=== PATIENT | female | born 1960 | race Caucasian/White ===

== ENCOUNTER 2016-06-13 17:06 | Emergency (ER) | payer BC ==
[~2016-06-13] VITALS: Ht 180.3 cm; Wt 118.0 kg
[2016-06-13 17:10] VITALS: Ht 180.3 cm; Wt 118.0 kg
[2016-06-13] MEDS ORDERED: LANS30CA12 PO (17:50)
[2016-06-13] MEDS ORDERED: ZNTT/150 PO (17:50)
[2016-06-13] MEDS ORDERED: FLVHFA220 INH (17:50)
[2016-06-13] MEDS ORDERED: LISI-461 PO (17:50)
--- NOTE | 2016-06-13 17:56 | EMERGENCY ROOM VISIT NOTE ---
History First contact with patient: 17:28 Chief Complaint: LEG PAIN,LEG INJURY Stated Complaint: RT LEG PAIN, SWELLING/REDNESS History of Present Illness The patient is a 55 year old female who presents to the Emergency Room with complaints of right leg pain, erythema since yesterday. The patient states that she noticed pain in the right medial thigh yesterday. She states she noticed redness. She states that she has not had a fever. She denies any pain in her chest or trouble breathing. She rates her discomfort a 5/10. The patient has a family history of clotting disorder. She has never had a blood clot herself. She denies any falls or injuries. Review of Systems A 10 system review of systems was completed with positives and pertinent negatives listed in the HPI. 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 (2) Hypertension Social History Smoking Status: Never Smoker Housing Status: lives with family Current/Historical Medications Scheduled Fluticasone Propionate (Flovent Hfa), 2 PUFFS INH BID Lansoprazole (Prevacid), 30 MG PO DAILY Lisinopril (Zestril), 10 MG PO DAILY Ranitidine (Zantac), 150 MG PO BID Rivaroxaban (Xarelto), 15 MG PO BID Rivaroxaban (Xarelto), 1 TAB PO DAILY Allergies Coded Allergies: No Known Allergies (Unverified , 06/13/16) Physical Exam Vital Signs Date Time Temp Pulse Resp B/P Pulse Ox O2 Delivery O2 Flow Rate FiO2 06/13/16 19:56 36.6 87 18 127/79 98 06/13/16 19:53 87 18 127/79 98 Room Air 06/13/16 17:10 36.6 110 18 176/104 98 Room Air Physical Exam VITALS: Vitals are noted on the nurse's note and reviewed by myself. Vital signs stable. GENERAL: This is a 55-year-old female, in no acute distress, nondiaphoretic, well-developed well-nourished. SKIN: There is erythema and tenderness to the right medial thigh. There is no significant warmth There is no tenting of the skin. Capillary reflex less than 2 seconds. HEAD: Normocephalic atraumatic. EARS: The external ears are normal in appearance EYES: Pupils equal round and reactive to light and accommodation. Conjunctivae without injection, sclerae without icterus. Extraocular movements intact. NOSE: Patent, turbinates without inflammation or discharge. MOUTH: Mucous membranes moist. Tonsils are not enlarged. Pharynx without erythema or exudate. Uvula midline. Airway patent. Tongue does not deviate. NECK: Supple without nuchal rigidity. No JVD. HEART: Regular rate and rhythm without murmurs gallops or rubs. LUNGS: Clear to auscultation bilaterally without wheezes, rales or rhonchi. No retractions or accessory muscle use. MUSCULOSKELETAL: No muscle atrophy, noted. There is erythema and tenderness noted to the right medial thigh. It is rather linear with a patchy got in the middle. There is no induration or significant warmth. There is no drainage. Full range of motion without joint tenderness in all extremities. Normal gait. Strength 5/5 throughout. NEURO: Patient was alert and oriented to person place and time. No focal neurological deficits. Medical Decision & Procedures ER Provider Diagnostic Interpretation: ULTRASOUND RIGHT LOWER EXTREMITY VENOUS CLINICAL HISTORY: Right leg pain and swelling. COMPARISON STUDY: No priors. TECHNIQUE: Real-time, grayscale, and color Doppler sonography of the deep veins of the right lower extremity was performed from the inguinal crease to the calf. Compression and augmentation were utilized. FINDINGS: There is no sonographic evidence of deep venous thrombosis identified in the right lower extremity. The common femoral, superficial femoral, and popliteal veins are patent and normally compressible. There is extensive nonocclusive superficial venous thrombus identified within the greater saphenous vein. This extends from the thigh to the calf. The profunda femoris vein at the junction with the common femoral vein is clear. The visualized calf veins are patent. IMPRESSION: 1. There is no sonographic evidence of deep venous thrombosis identified in the right lower extremity. 2. Occlusive superficial venous thrombus is seen within the greater saphenous vein extending to the proximal thigh to the calf. Laboratory Results 06/13/16 17:49 Red Blood Count 5.00, Mean Corpuscular Volume 83.0, Mean Corpuscular Hemoglobin 27.6, Mean Corpuscular Hemoglobin Concent 33.3, Mean Platelet Volume 10.4, Neutrophils (%) (Auto) 76.5, Lymphocytes (%) (Auto) 15.0, Monocytes (%) (Auto) 6.7, Eosinophils (%) (Auto) 1.2, Basophils (%) (Auto) 0.3, Neutrophils # (Auto) 8.65, Lymphocytes # (Auto) 1.70, Monocytes # (Auto) 0.76, Eosinophils # (Auto) 0.14, Basophils # (Auto) 0.03 06/13/16 17:49 Test 06/13/16 17:49 White Blood Count 11.31 K/uL (4.8-10.8) Red Blood Count 5.00 M/uL (4.2-5.4) Hemoglobin 13.8 g/dL (12.0-16.0) Hematocrit 41.5 % (37-47) Mean Corpuscular Volume 83.0 fL (80-100) Mean Corpuscular Hemoglobin 27.6 pg (25-34) Mean Corpuscular Hemoglobin Concent 33.3 g/dl (32-36) Platelet Count 238 K/uL (130-400) Mean Platelet Volume 10.4 fL (7.4-10.4) Neutrophils (%) (Auto) 76.5 % Lymphocytes (%) (Auto) 15.0 % Monocytes (%) (Auto) 6.7 % Eosinophils (%) (Auto) 1.2 % Basophils (%) (Auto) 0.3 % Neutrophils # (Auto) 8.65 K/uL (1.4-6.5) Lymphocytes # (Auto) 1.70 K/uL (1.2-3.4) Monocytes # (Auto) 0.76 K/uL (0.11-0.59) Eosinophils # (Auto) 0.14 K/uL (0-0.5) Basophils # (Auto) 0.03 K/uL (0-0.2) RDW Standard Deviation 42.3 fL (36.4-46.3) RDW Coefficient of Variation 14.0 % (11.5-14.5) Immature Granulocyte % (Auto) 0.3 % Immature Granulocyte # (Auto) 0.03 K/uL (0.00-0.02) Prothrombin Time 10.0 SECONDS (9.0-12.0) Prothromb Time International Ratio 0.9 (0.9-1.1) Activated Partial Thromboplast Time 25.9 SECONDS (21.0-31.0) Partial Thromboplastin Ratio 1.0 Anion Gap 9.0 mmol/L (3-11) Est Creatinine Clear Calc Drug Dose 101.0 ml/min Estimated GFR () 85.1 Estimated GFR (Non- 73.4 BUN/Creatinine Ratio 17.2 (10-20) Calcium Level 8.7 mg/dl (8.5-10.1) Total Bilirubin 0.3 mg/dl (0.2-1) Aspartate Amino Transf (AST/SGOT) 9 U/L (15-37) Alanine Aminotransferase (ALT/SGPT) 20 U/L (12-78) Alkaline Phosphatase 91 U/L (45-117) Pro-B-Type Natriuretic Peptide 65 pg/ml (0-900) Total Protein 7.6 gm/dl (6.4-8.2) Albumin 3.7 gm/dl (3.4-5.0) Globulin 3.9 gm/dl (2.5-4.0) Albumin/Globulin Ratio 0.9 (0.9-2) Medications Administered Medications (Trade) Dose Ordered Sig/Estephania Route Start Time Stop Time Status Last Admin Dose Admin Rivaroxaban (Xarelto Tab) 15 mg ONE STAT PO 06/13/16 19:04 06/13/16 19:08 DC 06/13/16 19:48 15 MG Rivaroxaban (Xarelto Tab) 15 mg ONE STAT PO 06/13/16 19:04 06/13/16 19:08 DC 06/13/16 19:48 15 MG ED Course The patient was seen and examined. Previous visits were. The patient does not have a fever or leukocytosis. She does not have any significant electrolyte abnormalities. INR is 0.9. Ultrasound was obtained as above. The patient has extensive superficial thrombophlebitis of the right leg. The patient does have extensive superficial thrombophlebitis, longer than 5 cm in length. Additionally, the patient the patient is heterozygous for prothrombin [id number]. I discussed the case with Dr. Caballero who suggests anticoagulation at a therapeutic dose. The ED pharmacist also spoke with the patient and checked with her pharmacy on coverage of Xarelto. The patient will be given 15 mg oral Xarelto in the emergency department as well as a dose for the morning. The pharmacy can have the remaining prescription in by 2 PM tomorrow. She will be given a prescription for 15 mg by mouth twice a day 3 weeks and a 30 day supply of the 20 mg daily to start after 3 weeks. She should contact her family doctor to schedule a follow-up appointment for further evaluation, management and discussion of the anticoagulation. She should return to the ER with any worsening symptoms, chest pain, trouble breathing. The case was discussed with Dr Dempsey who agrees with the assessment and treatment plan Medical Decision The differential diagnosis includes DVT, PE, superficial thrombophlebitis, cellulitis, among others Impression Primary Impression: Superficial thrombophlebitis Departure Information Dispostion Home / Self-Care Condition GOOD Prescriptions Rivaroxaban (XARELTO) 20 Mg Tab 1 TAB PO DAILY for 30 Days, #30 TAB 0 Refills Prov: Natasha Arciniega PA-C 06/13/16 Rivaroxaban (XARELTO) 15 Mg Tab 15 MG PO BID for 21 Days, #42 TAB Prov: Natasha Arciniega PA-C 06/13/16 Referrals Mynor Morrison M.D. (PCP) Patient Instructions Anticoagulants, ED Phlebitis Superficial, [facility] Additional Instructions Xarelto 15 mg every 12 hours for 3 weeks Then switch to 20 mg daily Contact your family doctor to schedule a follow-up appointment within the next week Return to the emergency Department with any chest pain, trouble breathing or generalized worsening symptoms Problem Qualifiers Primary Impression: Superficial thrombophlebitis Superficial thrombophlebitis-Involved body area: lower extremity Laterality: right Qualified Codes: I80.01 - Phlebitis and thrombophlebitis of superficial vessels of right lower extremity
[2016-06-13 18:05] LABS: BASO % 0.3 %; BASO ABS # 0.03 K/uL (0-0.2); COMPLETE YES; EOS % 1.2 %; HEMATOCRIT 41.5 % (37-47); IG% 0.3 %; MEAN CORPUSCULAR HEMOGLOBIN 27.6 pg (25-34); MEAN CORPUSCULAR HGB CONC 33.3 g/dl (32-36); MEAN PLATELET VOLUME 10.4 fL (7.4-10.4); MONO % 6.7 %; NEUT % 76.5 %; PLATELET COUNT 238 K/uL (130-400); WHITE BLOOD COUNT 11.31 K/uL (4.8-10.8)
[2016-06-13 18:25] LABS: BUN/CREATININE RATIO 17.2 (10-20); CALCIUM 8.7 mg/dl (8.5-10.1); CREATININE 0.88 mg/dl (0.60-1.20); INR 0.9 (0.9-1.1); POTASSIUM 3.9 mmol/L (3.5-5.1)
--- NOTE | 2016-06-13 18:25 | DIAGNOSTIC IMAGING REPORT ---
ULTRASOUND RIGHT LOWER EXTREMITY VENOUS CLINICAL HISTORY: Right leg pain and swelling. COMPARISON STUDY: No priors. TECHNIQUE: Real-time, grayscale, and color Doppler sonography of the deep veins of the right lower extremity was performed from the inguinal crease to the calf. Compression and augmentation were utilized. FINDINGS: There is no sonographic evidence of deep venous thrombosis identified in the right lower extremity. The common femoral, superficial femoral, and popliteal veins are patent and normally compressible. There is extensive nonocclusive superficial venous thrombus identified within the greater saphenous vein. This extends from the thigh to the calf. The profunda femoris vein at the junction with the common femoral vein is clear. The visualized calf veins are patent. IMPRESSION: 1. There is no sonographic evidence of deep venous thrombosis identified in the right lower extremity. 2. Occlusive superficial venous thrombus is seen within the greater saphenous vein extending to the proximal thigh to the calf. Electronically signed by: Edvin Brown M.D. 06/13/2016 6:23 PM Dictated Date/Time: 06/13/2016 6:22 PM
[2016-06-13 18:30] LABS: ALB/GLOB RATIO 0.9 (0.9-2)
[2016-06-13] MEDS ORDERED: RIVAROXABAN TAB 15 MG TAB PO STA ×2 (19:04)
[2016-06-13] MEDS ORDERED: RIVA1.5T PO (19:07)
[2016-06-13] MEDS ORDERED: RIVA1TAB4 PO (19:07)
[2016-06-13] MEDS ORDERED: EMPTY 8 DRAM VIAL ONE (19:46)
[2016-06-13 19:56] VITALS: BP 127/79; PULSE 87; TEMP 36.6; O2SAT 98
[2016-11-30] MEDS ORDERED: LINICRE TOP (12:14)
[2016-12-28] MEDS ORDERED: RXC5 PO (07:23)
[2016-12-28] MEDS ORDERED: XRL10 PO (07:23)
== END 2016-06-13 19:57 | disposition home or self-care (01) ==
LOC: C.EDB 17:09 → C.EDD 19:57
DX: I80.01 Phlebitis and thrombophlebitis of superficial vessels of right lower extremity (principal); I10 Essential (primary) hypertension; Z79.899 Other long term (current) drug therapy

== ENCOUNTER 2016-12-26 04:48 | Inpatient (IN) | payer BC ==
[2016-11-30 12:15] VITALS: BMI 38.0
--- NOTE | 2016-11-30 13:18 | PAT Medication Instructions ---
Service Date Nov 30, 2016. Current Home Medication List Fluticasone Propionate (Flovent Hfa), 2 PUFFS INH BID Lansoprazole (Prevacid), 30 MG PO QAM Liniments & Rubs (Vicks Babyrub), 1 DOSE TOP UD PRN for HS Lisinopril (Zestril), 10 MG PO QAM Ranitidine (Zantac), 150 MG PO BID Medication Instructions For Your Scheduled Surgery - Hold the following medications 24 hours prior to surgery: Liniments & Rubs (Vicks Babyrub), 1 DOSE TOP UD PRN for HS - Hold the following medications the morning of surgery: Lisinopril (Zestril), 10 MG PO QAM - Take the following medications the morning of surgery with a sip of water: Ranitidine (Zantac), 150 MG PO BID Lansoprazole (Prevacid), 30 MG PO QAM Fluticasone Propionate (Flovent Hfa), 2 PUFFS INH BID - Take the following medications as scheduled the night before surgery: Ranitidine (Zantac), 150 MG PO BID Fluticasone Propionate (Flovent Hfa), 2 PUFFS INH BID If you have any questions please call us at [phone] or [phone] or [phone]
[2016-11-30 13:35] LABS: BASO % 0.3 %; BASO ABS # 0.03 K/uL (0-0.2); COMPLETE YES; EOS % 1.2 %; HEMATOCRIT 39.5 % (37-47); IG% 0.2 %; LYMPH % 18.6 %; LYMPH ABS # 1.68 K/uL (1.2-3.4); MEAN CELL VOLUME 82.5 fL (80-100); MEAN CORPUSCULAR HEMOGLOBIN 27.6 pg (25-34); MEAN CORPUSCULAR HGB CONC 33.4 g/dl (32-36); MEAN PLATELET VOLUME 10.2 fL (7.4-10.4); MONO % 6.5 %; NEUT % 73.2 %; PLATELET COUNT 268 K/uL (130-400); RED BLOOD COUNT 4.79 M/uL (4.2-5.4); WHITE BLOOD COUNT 9.05 K/uL (4.8-10.8)
[2016-11-30 13:40] LABS: BUN/CREATININE RATIO 14.9 (10-20); CALCIUM 9.1 mg/dl (8.5-10.1); CREATININE 0.84 mg/dl (0.60-1.20); POTASSIUM 3.8 mmol/L (3.5-5.1)
[2016-11-30 13:44] LABS: URINE APPEARANCE CLEAR (CLEAR); URINE BILIRUBIN NEG (NEG); URINE COLOR YELLOW; URINE NITRITE NEG (NEG); URINE PH 6.5 (4.5-7.5); UROBILINOGEN NEG (NEG)
[2016-11-30 13:45] LABS: INR 0.9 (0.9-1.1)
[2016-11-30 13:51] LABS: MANUAL MICROSCOPIC REQUIRED? NO; REVIEW REQ? NO
--- NOTE | 2016-11-30 13:54 | DIAGNOSTIC IMAGING REPORT ---
TWO VIEW CHEST CLINICAL HISTORY: Preoperative examination. FINDINGS: PA and lateral chest radiographs are obtained. No prior studies are available for comparison at the time of dictation. The cardiomediastinal silhouette is unremarkable. The lungs and pleural spaces are clear. There is no pneumothorax. The skeletal structures are osteopenic. The bony thorax appears intact. IMPRESSION: No active disease in the chest. Electronically signed by: Edvin Brown M.D. 11/30/2016 1:53 PM Dictated Date/Time: 11/30/2016 1:53 PM
--- NOTE | 2016-12-25 18:27 | HISTORY & PHYSICAL EXAMINATION ---
DATE OF ADMISSION: 12/26/2016 CHIEF COMPLAINT: Primary osteoarthritis of the right hip. 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 She has been having bilateral hip pain for about 4 years. She was initially treated by Dr. Bruce, who got x-rays of her hips, which showed advanced degenerative joint disease of both hips with the right being worse than left. It got progressively worse over the past 4 years. She is having a hard time ambulating. Her pain is deep within her groin. She also has difficulty sleeping at night. After failing extensive conservative treatment, she elected to proceed with a right total hip arthroplasty. PAST MEDICAL HISTORY: Significant for superficial thrombophlebitis, hypertension and heterozygous for prothrombin [id number] mutation. MEDICATIONS: Include Flovent 2 puffs twice a day, Prevacid 30 mg daily, Vicks BabyRub as needed, Zestril 10 mg daily, and Zantac 150 mg twice a day. PAST SURGICAL HISTORY: Significant for an ovarian wedge and a carpal tunnel release. ALLERGIES: None. FAMILY HISTORY: Significant for blood clots. SOCIAL HISTORY: She is and rarely drinks. Denies any tobacco or IV drug use. She does little activity because of the right hip pain. REVIEW OF SYSTEMS: She complains of right hip pain. All other pertinent review of systems are negative. PHYSICAL EXAMINATION: GENERAL: She is awake, alert and oriented x3. She is in no apparent distress. She is very pleasant. HEENT: Pupils are equal, round and reactive to light. Extraocular motion intact. Oral mucosa is pink and moist. HEART: Regular rate per radial pulse. LUNGS: Breana symmetrically bilaterally with no audible breath sounds. ABDOMEN: Soft, nontender, and nondistended. MUSCULOSKELETAL: On physical examination of the right hip, she ambulates independently, but she does have an antalgic gait. She has very limited range of motion with about 90 degrees of flexion and very limited internal and external rotation with significant pain with forced end ranges of motion. IMAGING DATA: X-rays of the right hip do show advanced osteoarthritis with joint space narrowing, osteophyte formation and subchondral cyst sclerosis. IMPRESSION: Primary osteoarthritis of the right hip. PLAN: We will proceed with an anterior right total hip arthroplasty. Postoperatively, she will be started on Xarelto 20 mg 24 hours from the time of surgery. She has already spoken to her [facility] freelance art director about this. She will be on Xarelto for 6 weeks. She will stay in the hospital for 2 midnights for postoperative medical management.
[2016-12-26] VITALS (9 sets, daily range): BP systolic 108–181; BP diastolic 70–99; PULSE 80–100; TEMP 36.3–36.8; O2SAT 97–100; Ht 177.8 cm; Wt 121.9 kg
[~2016-12-26] VITALS: Ht 177.8 cm; Wt 121.9 kg
[~2016-12-26 04:48] MED LIST: FLVHFA220 INH; LANS30CA12 PO; LINICRE TOP; LISI-461 PO; ZNTT/150 PO
[2016-12-26] MEDS ORDERED: ROPIVACAINE 5MG/ML 30 ML 150 MG, BUPIVACAINE 0.5% MPF INJ 30 ML, EpINEphrine HCL INJ 0.... INFIL SCH ×8 (06:00)
[2016-12-26] MEDS ORDERED: CEFAZOLIN 3000MG IV PUSH 15 ML IV SCH (06:00)
[2016-12-26] MEDS ORDERED: LACTATED RINGER'S 1000ML IV SCH (06:00)
[2016-12-26] MEDS ORDERED: LACTATED RINGER'S 1000ML 1,000 ML IV SCH (06:00)
[2016-12-26] MEDS ORDERED: LACTATED RINGER'S 500 ML IV SCH (06:00)
[2016-12-26] MEDS ORDERED: ACETAMINOPHEN 500 MG TAB PO SCH (06:00)
[2016-12-26] MEDS ORDERED: BUPIVACAINE 0.5 % 5 MG/1 ML PF 10ML VIAL ONE (06:21)
--- NOTE | 2016-12-26 06:22 | History & Physical Bridge Note ---
H&P Re-Evaluation Bridge Note: I have examined the patient, reviewed the History & Physical and in the interval since the performance of the History & Physical I have noted the following changes of clinical significance: No changes noted
[2016-12-26] MEDS ORDERED: FENTANYL CITRATE INJ 50 MCG/1 ML 2 ML VIAL ONE ×3 (06:46→12:34)
[2016-12-26] MEDS ORDERED: MIDAZOLAM HCL 1 MG/ML 2ML VIAL ONE ×4 (06:46→11:24)
[2016-12-26] MEDS ORDERED: ORTHO JOINT ANESTHETIC ONE (06:53)
[2016-12-26] MEDS ORDERED: BACITRACIN 50000 UNIT VIAL ONE ×2 (06:54→12:03)
[2016-12-26] MEDS ORDERED: PROPOFOL IV EMULSION 10 MG/ML 20 ML VIAL IV ONE ×3 (06:55→11:24)
[2016-12-26] MEDS ORDERED: ATROPINE SULFATE 0.1 MG/ML 5ML SYR IV PRN ×2 (07:30→12:15)
[2016-12-26] MEDS ORDERED: FENTANYL CITRATE INJ 50 MCG/1 ML 2 ML VIAL IV PRN ×2 (07:30→12:15)
[2016-12-26] MEDS ORDERED: EpHEDrine SULFATE INJ 50 MG/ML AMP IV PRN ×2 (07:30→12:15)
[2016-12-26] MEDS ORDERED: ONDANSETRON INJ 2 MG/ML 2 ML VIAL IV PRN ×3 (07:30→12:15)
[2016-12-26] MEDS ORDERED: LIDOCAINE HCL 2% 2 ML VIAL (20MG/ML) ONE ×2 (08:19→11:24)
[2016-12-26] MEDS ORDERED: GLYCOPYRROLATE INJ 0.2 MG/ML VIAL ONE (08:20)
[2016-12-26] MEDS ORDERED: PHENYLEPHRINE 100MCG/ML 5ML SYR ONE (08:20)
[2016-12-26] MEDS ORDERED: EpHEDrine SULFATE 50MG/5ML SYR ONE (08:25)
--- NOTE | 2016-12-26 09:15 | DIAGNOSTIC IMAGING REPORT ---
R HIP UNILATERAL 1 VIEW CLINICAL HISTORY: RT ANTERIOR HIP COMPARISON: None. DISCUSSION: Anatomic alignment status post total right hip replacement. Expected postoperative soft tissue change IMPRESSION: Anatomic alignment status post total right hip replacement The above report was generated using voice recognition software. It may contain grammatical, syntax or spelling errors. Electronically signed by: Keo Briggs M.D. 12/26/2016 9:14 AM Dictated Date/Time: 12/26/2016 9:13 AM
--- NOTE | 2016-12-26 09:16 | [facility] Post Operative Brief Note ---
Immediate Operative Summary Operative Date Dec 26, 2016. Pre-Operative Diagnosis Primary osteoarthritis right hip Post-Operative Diagnosis Primary osteoarthritis right hip Procedure(s) Performed Right Anterior Total Hip Arthroplasty Surgeon [facility] Unit Clerk Surgeon(s) Sanket Bowen PA-C Estimated Blood Loss 250cc Findings as above Specimens A. Right femoral head Complication(s) None Disposition Recovery Room / PACU
[2016-12-26] MEDS ORDERED: MAGNESIUM HYDROXIDE SUSP 30 ML UDC PO PRN (09:30)
[2016-12-26] MEDS ORDERED: OXYCODONE HCL IR 5 MG TAB (IMMEDIATE RELEASE) PO PRN (09:30)
[2016-12-26] MEDS ORDERED: METOCLOPRAMIDE HCL INJ 5 MG/ML 2 ML VIAL IV PRN (09:30)
[2016-12-26] MEDS ORDERED: MoRPHine SULFATE 2 MG/ML CARP IV PRN (09:30)
[2016-12-26] MEDS ORDERED: SILVER SULFADIAZINE 1% CR 50 GM JAR EXT PRN (09:30)
[2016-12-26] MEDS ORDERED: SOD PHOSPHATE/SOD BIPHOSPHATE ENEMA 132 ML BTL PR PRN (09:30)
[2016-12-26] MEDS ORDERED: BISACODYL 10 MG SUPP PR PRN (09:30)
--- NOTE | 2016-12-26 10:15 | DIAGNOSTIC IMAGING REPORT ---
SINGLE VIEW PELVIS; 2 VIEWS RIGHT HIP CLINICAL HISTORY: Postoperative examination. FINDINGS: An AP portable view of the hips and pelvis with AP and crosstable lateral portable view of the right hip are obtained. A bipolar right hip arthroplasty has been placed. The femoral component does not appear to be well seated within the acetabular cup, and appears to be mildly subluxed dorsally and laterally. A single cortical lag screw transfixes the acetabular cup. No acute fracture is identified. There are expected postoperative changes overlying the right hip including skin clips, subcutaneous gas, a surgical drain, and soft tissue swelling. Advanced arthritic change is identified in the left hip. IMPRESSION: 1. There are expected postoperative findings status post right hip arthroplasty. The femoral components does not appear to be well seated within the acetabular cup. 2. No fracture is seen. Electronically signed by: Edvin Brown M.D. 12/26/2016 10:14 AM Dictated Date/Time: 12/26/2016 10:11 AM
--- NOTE | 2016-12-26 10:49 | Anesthesiology Progress Note ---
Anesthesia Post Op Note Date & Time Dec 26, 2016 at 10:45 Vital Signs Pain Intensity: 0 Vital Signs Past 12 Hours Date Time Temp Pulse Resp B/P (MAP) Pulse Ox O2 Delivery O2 Flow Rate FiO2 12/26/16 10:30 36.1 92 18 147/86 100 Nasal Cannula 2 12/26/16 10:15 73 19 136/99 100 Nasal Cannula 2 12/26/16 10:05 80 19 133/93 100 Nasal Cannula 2 12/26/16 09:55 82 15 125/86 100 Nasal Cannula 2 12/26/16 09:45 81 15 134/82 100 Oxymask 10 12/26/16 09:35 92 15 129/78 100 Oxymask 10 12/26/16 09:27 36.4 101 14 112/76 99 Oxymask 10 12/26/16 05:40 36.8 84 20 147/98 98 Room Air Notes Mental Status: alert / awake / arousable, participated in evaluation Pt Amnestic to Procedure: Yes Nausea / Vomiting: adequately controlled Pain: adequately controlled Airway Patency, RR, SpO2: stable & adequate BP & HR: stable & adequate Hydration State: stable & adequate Neuraxial Anesthesia: was administered, sensory block is resolving Anesthetic Complications: no major complications apparent Pt has no anesthetic complications but pt will need to return to operating room 2/2 unstable hip on post operative X ray.
[2016-12-26] MEDS ORDERED: ONDANSETRON INJ 2 MG/ML 2 ML VIAL ONE (11:24)
[2016-12-26] MEDS ORDERED: DEXAMETHASONE SOD INJ 4 MG/ML VIAL ONE (11:24)
--- NOTE | 2016-12-26 11:48 | History & Physical Bridge Note ---
H&P Re-Evaluation Bridge Note: Post operative x-rays showed a subluxation of the femoral head. After discussions with the patient and her family, she will be taken back to the OR for a femoral head exchange.
--- NOTE | 2016-12-26 12:09 | PROGRESS NOTE ---
DATE: 12/26/2016 Postoperative radiographs done in the postanesthesia care unit showed a subluxation of the femoral head. The femoral head was not fully dislocated, it was just subluxated laterally. Her leg lengths looked equal. I was able to get full range of motion of her hip and her hip seemed to move just fine. When I did an x-ray in more abduction, the hip was reduced, but when I brought the leg out to full extension, it was subluxated laterally. This is confusing because she had an anatomic reduction in the OR, confirmed with fluoroscopy following the surgery. I shot several x-rays to see if the hip could easily be reduced, but it could not. It was sitting laterally. I am not sure if there was some soft tissue interposition or if there was something with closure of the capsule. I discussed it with the patient and her family. I want to take her back to the operating room and possibly do a femoral head exchange and ensure there is no soft tissue interposition. Consent was signed and I will talk to the family immediately afterwards.
--- NOTE | 2016-12-26 12:45 | OPERATIVE REPORT ---
DATE OF OPERATION: 12/26/2016 PREOPERATIVE DIAGNOSIS: Primary osteoarthritis of the right hip. POSTOPERATIVE DIAGNOSIS: Same. PROCEDURE: Right total hip arthroplasty. SURGEON: Dr. Montez Thomas. RIPRAP MAN: Shady Bowen PA-C, whose assistance was necessary for positioning of the leg and helping with instrumentation. ANESTHESIA: Spinal. COMPLICATIONS: None. CONDITION: Stable to PACU. IMPLANTS USED: I used a Biomet Taperloc total hip arthroplasty system with a size 52 G7 cup with a single 30 mm screw, a neutral E1 poly liner, a size 17 standard offset Taperloc stem and a 36+6 ceramic head. INDICATIONS: Francheska is a pleasant 56-year-old female who presented to my office with chronic bilateral hip pain. X-rays and clinical examination were diagnostic for primary osteoarthritis of both hips. After failing conservative treatment, she elected to undergo a right total hip arthroplasty. OPERATION AND FINDINGS: On 12/26/2016, she arrived at [facility] for the above procedure. She was seen in the preoperative holding area and the operative extremity was identified and signed. She was given a preoperative antibiotic and a spinal anesthetic. She was taken back to the operating room, laid on the table in supine position and put under basic sedation. The right leg was then brought out to a Purist leg positioner. The right hip was then prepped and draped in sterile fashion. Time-out was done and the patient and operative extremity was properly identified. An anterior approach was used. Dissection was taken down through the fascia and the tensor muscle was retracted laterally and the rectus was retracted medially. The circumflex vessels were ligated. The capsule was then incised and tagged for later repair. The femoral neck was then resected and the head was removed. The acetabulum was exposed. Time was spent doing a complete circumferential labral release. Sequential reaming of the acetabulum up to a size 51 reamer was done. Reaming was done under fluoroscopy to ensure appropriate version. A final size 52 acetabular cup was then impacted into place. I was happy with the version. A neutral E1 poly liner was then snapped into place. Fluoroscopic images showed anatomic alignment of the cup. Attention was then turned to the femur. The proximal femur was exposed. Sequential broaching up to a size 17 broach was done. A standard head and neck assembly was applied and the hip was reduced. I felt it looked like that the hip was a little bit short. I tried a +6 trial head and it seemed to bring out the leg lengths equally. The hip was then dislocated. The broach was removed. The final size 17 implant was then impacted into place. A ceramic 36+6 head was then impacted into place. Her hip was reduced. Final fluoroscopic images showed anatomic reduction of the hip and anatomic alignment. The wound was then irrigated and surrounding soft tissues were injected with 100 mL orthopedic pain control cocktail. The entire wound was irrigated with 3 liters of normal saline solution with bacitracin. The capsule was then closed with #1 Vicryl and a drain was placed. The fascia was closed with PDS suture. Skin was closed with 2-0 Vicryl, 3-0 V-Loc and nicola. She was placed in a soft dressing and taken to the postanesthesia care unit in stable condition. She tolerated the procedure well. I attest to the content of the Intraoperative Record and any orders documented therein. Any exception s are noted below.
--- NOTE | 2016-12-26 14:18 | Anesthesiology Progress Note ---
Anesthesia Post Op Note Date & Time Dec 26, 2016 at 14:18 Vital Signs Pain Intensity: 0 Vital Signs Past 12 Hours Date Time Temp Pulse Resp B/P (MAP) Pulse Ox O2 Delivery O2 Flow Rate FiO2 12/26/16 14:10 84 12 145/87 100 Nasal Cannula 2 12/26/16 14:07 144/88 12/26/16 14:05 36.0 92 17 159/100 100 Nasal Cannula 2 12/26/16 13:55 82 14 148/93 100 Nasal Cannula 2 12/26/16 13:45 84 18 148/82 100 Oxymask 10 12/26/16 13:37 36.2 96 12 140/82 100 Oxymask 10 12/26/16 12:15 70 18 142/81 100 Nasal Cannula 2 12/26/16 12:00 80 23 149/84 100 Nasal Cannula 2 12/26/16 11:45 84 16 148/90 100 Nasal Cannula 2 12/26/16 11:30 66 16 137/90 100 Nasal Cannula 2 12/26/16 11:15 77 16 144/81 100 Nasal Cannula 2 12/26/16 11:00 74 16 141/91 100 Nasal Cannula 2 12/26/16 10:45 79 16 143/85 100 Nasal Cannula 2 12/26/16 10:30 36.1 92 18 147/86 100 Nasal Cannula 2 12/26/16 10:15 73 19 136/99 100 Nasal Cannula 2 12/26/16 10:05 80 19 133/93 100 Nasal Cannula 2 12/26/16 09:55 82 15 125/86 100 Nasal Cannula 2 12/26/16 09:45 81 15 134/82 100 Oxymask 10 12/26/16 09:35 92 15 129/78 100 Oxymask 10 12/26/16 09:27 36.4 101 14 112/76 99 Oxymask 10 12/26/16 05:40 36.8 84 20 147/98 98 Room Air Notes Mental Status: alert / awake / arousable, participated in evaluation Pt Amnestic to Procedure: Yes Nausea / Vomiting: adequately controlled Pain: adequately controlled Airway Patency, RR, SpO2: stable & adequate BP & HR: stable & adequate Hydration State: stable & adequate Anesthetic Complications: no major complications apparent
--- NOTE | 2016-12-26 14:20 | DIAGNOSTIC IMAGING REPORT ---
R PELVIS/UNILATERAL HIP 1 VIEW CLINICAL HISTORY: Postoperative evaluation. COMPARISON: Pelvis and bilateral hip radiographs November 21, 2016. FINDINGS: Alignment of the total right hip arthroplasty is anatomic. There is an acetabular screw. No fracture or unexpected radiopaque foreign bodies are identified. Skin nicola are present. Severe left hip osteoarthritis is noted. IMPRESSION: Expected findings following total right hip arthroplasty. Electronically signed by: Clinton Kelly M.D. 12/26/2016 2:19 PM Dictated Date/Time: 12/26/2016 2:16 PM
[2016-12-26] MEDS: SODIUM CHLORIDE 0.9% 1000ML 1,000 ML IV SCH ×2 (15:45→16:23)
[2016-12-26] MEDS: KETOROLAC TROMETHAMINE 30 MG/ML VIAL IV. SCH ×2 (15:46→20:55)
[2016-12-26] MEDS: CEFAZOLIN IV 2,000 MG in SYRINGE 0 ML IV SCH (15:46)
--- NOTE | 2016-12-26 15:46 | OPERATIVE REPORT ---
DATE OF OPERATION: 12/26/2016 PREOPERATIVE DIAGNOSIS: Subluxation of the right hip. POSTOPERATIVE DIAGNOSIS: Same. PROCEDURE: Femoral head exchange of the right hip. SURGEON: Dr. Montez Thomas. FAMILY MANAGER: Sanket Bowen PA-C, whose assistance was necessary for retraction. ANESTHESIA: General. COMPLICATIONS: None. CONDITION: Stable to PACU. IMPLANTS USED: I used a Biomet 36-mm metal head with a +12 neck. INDICATIONS: Francheska is a pleasant 56-year-old female who just underwent a right total hip arthroplasty several hours ago. Initial radiographs under fluoroscopy in the OR showed reduced hip. She was then taken to the postanesthesia care unit and postoperative plain films showed lateral subluxation of the hip. I was concerned that there was not enough tension or length of the prosthesis. She had a +6 head in there and given the abnormality of her anatomy with her being extremely long and valgus, I thought a longer implant and reduction would be necessary. I discussed everything with her and her family and we took her back to the operating room for femoral head exchange. The right hip was prepped and draped in sterile fashion and the right leg was brought out through Purist leg positioner. Time-out was done and the patient and operative extremity was properly identified. The previous incision was once again opened back up. Dissection was taken down directly to the capsule. The capsule was released. Initial fluoroscopic x-ray showed a reduced hip. The hip was dislocated. I trialed a +9 head and a +12 head. The +12 seemed to give the best stability. The final 36/+12 metal head was then impacted into place. The hip was reduced. Final fluoroscopic images showed complete reduction of the hip. The wound was then irrigated with 3 liters of normal saline solution with bacitracin. The capsule was then closed with #1 Vicryl. The fascia was closed with #1 PDS suture. Skin was closed with 2-0 Vicryl, 3-0 V-Loc suture and nicola. She was then placed in a soft dressing, extubated, transferred to [facility] and taken to the postanesthesia care unit in stable condition. She tolerated the procedure well. Postoperative flat plate radiographs done in the PACU showed anatomic total hip arthroplasty without subluxation. I attest to the content of the Intraoperative Record and any orders documented therein. Any exception s are noted below.
[2016-12-26] MEDS: ACETAMINOPHEN IV 1,000 MG in EMPTY BAG 0 ML IV SCH (15:47)
[2016-12-26] MEDS: FLUTICASONE HFA 220 MCG INHALER INH SCH (20:52)
[2016-12-26] MEDS: DOCUSATE SODIUM 100 MG CAP PO SCH (20:54)
[2016-12-26] MEDS: RANITIDINE HCL 150 MG TAB PO SCH (20:54)
[2016-12-26] MEDS: SENNA 8.6 MG TAB PO SCH (20:54)
[2016-12-27] MEDS: ACETAMINOPHEN IV 1,000 MG in EMPTY BAG 0 ML IV SCH ×2 (00:22→07:32)
[2016-12-27] MEDS: CEFAZOLIN IV 2,000 MG in SYRINGE 0 ML IV SCH (00:23)
[2016-12-27] MEDS: SODIUM CHLORIDE 0.9% 1000ML 1,000 ML IV SCH (01:52)
[2016-12-27 03:25] VITALS: BP 115/69; PULSE 89; TEMP 36.9; O2SAT 99
[2016-12-27] MEDS: KETOROLAC TROMETHAMINE 30 MG/ML VIAL IV. SCH ×4 (03:57→22:00)
[2016-12-27 06:19] LABS: COMPLETE YES; HEMATOCRIT 29.6 % (37-47); IG% 0.2 %; LYMPH % 10.5 %; LYMPH ABS # 0.88 K/uL (1.2-3.4); MEAN CELL VOLUME 82.9 fL (80-100); MEAN CORPUSCULAR HEMOGLOBIN 27.7 pg (25-34); MEAN CORPUSCULAR HGB CONC 33.4 g/dl (32-36); MEAN PLATELET VOLUME 10.1 fL (7.4-10.4); MONO % 10.3 %; PLATELET COUNT 200 K/uL (130-400); RED BLOOD COUNT 3.57 M/uL (4.2-5.4); WHITE BLOOD COUNT 8.38 K/uL (4.8-10.8)
[2016-12-27 06:45] LABS: BUN/CREATININE RATIO 18.8 (10-20); CALCIUM 8.3 mg/dl (8.5-10.1); CREATININE 0.75 mg/dl (0.60-1.20); POTASSIUM 4.2 mmol/L (3.5-5.1)
--- NOTE | 2016-12-27 06:53 | Discharge Instructions ---
Discharge Instructions Date of Service Dec 27, 2016. Admission Reason for Admission: Osteoarthritis Hip Discharge Discharge Diagnosis / Problem: Right Total Hip Arthroplasty Discharge Goals Goal(s): Decrease discomfort, Improve function Activity Recommendations Activity Limitations: as noted below . Instructions / Follow-Up Instructions / Follow-Up Activity and Therapy Recommendations: * If you are using [facility] then Physical Therapy will be provided until they feel you are ready to start Outpatient Physical Therapy. If you are not using a Home Health agency then Outpatient Physical Therapy should start about 3-5 days from your day of surgery. Therapy will last about 3-6 weeks * You were shown a series of exercises in the hospital. Do these exercises three times each day including the exercises you were shown in physical therapy. * Get up and walk several times each day.~ For the first four weeks, try not to stand or walk for more than one hour at a time. If you do stand or walk for more than one hour, you will not hurt anything, but your leg will likely swell.~ ~ * As you feel comfortable, you may change from the walker or crutches to a cane and~then to independent walking. Medications: * Narcotic You will likely be sent home from the hospital with a prescription for the narcotic pain medication that worked best throughout your stay. * Aspirin Most patients will be required to take Aspirin 325mg twice a day for 6 weeks after surgery. This is obtained [id number] and a prescription is not necessary. * Other medications may be prescribed for specific circumstances. If you have any questions, please call the office at . * Resume previous home medications unless otherwise instructed TEDs/Elastic Stockings: The white elastic stockings help limit swelling and prevent blood clots from forming in your legs. The more you wear them, the more they work. Wear them for six weeks. Showering: You may shower 5 days from the day of surgery. Let the soapy shower water run over the nicola. Do not scrub or soak the incision. Things To Watch For: * Drainage from the incision site that occurs more than one week after your surgery. * Increased redness at the incision site. * Fever above 102 degrees Fahrenheit. * Unusual chest pain or shortness of breath. * Call [facility] at with any of the above problems Follow-Up Visit: Follow-up with Dr. Thomas 2-3 weeks after your day of surgery. An appointment was probably scheduled when you signed-up for surgery in the office. If you have any questions call Office Instructions: More detailed instructions as well as Frequently Asked Questions were provided in a folder by our office when you signed-up for surgery. Please review these instructions when you get home. If you have any further questions or concerns, please feel free to call the office at [phone] Current Hospital Diet Patient's current hospital diet: Regular Diet Discharge Diet Recommended Diet: Regular Diet Procedures Procedures Performed: Right Femoral Head Exchange Pending Studies Studies pending at discharge: no Medical Emergencies . Who to Call and When: Medical Emergencies: If at any time you feel your situation is an emergency, please call [phone] immediately. . Non-Emergent Contact Non-Emergency issues call your: Surgeon Call Non-Emergent contact if: wound has increased drainage, wound has increased redness . "Provider Documentation" section prepared by Montez Thomas. . VTE Core Measure Inpt VTE Proph given/why not?: Other Anticoagulation (Xerelto 20 mg daily for 4 weeks)
[2016-12-27 06:57] VITALS: BP 131/76; PULSE 83; TEMP 36.7; O2SAT 100
--- NOTE | 2016-12-27 07:17 | PROGRESS NOTE ---
DATE: 12/27/2016 CHIEF COMPLAINT: Status post right total hip arthroplasty postop day #1. PROGRESS: Francheska was seen and examined at bedside today. Overall, she is doing very well. She said she has some soreness in the hip, but not too bad. She was up and ambulating around the nurses' station last night and she has been up several times to go to the bathroom. She says her hip feels good. She has no complaints. PHYSICAL EXAMINATION: RIGHT HIP: The dressing is clean and dry; there is no drain. Her leg lengths are equal. She has active dorsiflexion and plantarflexion of her right ankle. Sensation is intact at her quad. LABS: She has an H&H of 9.9 and 29.6. Her glucose is 114. Her vital signs are all stable on room air. She is voiding on her own. X-rays postoperatively of the right hip show the prosthesis to be in anatomic alignment without any evidence of fracture, dislocation or loosening. IMPRESSION: Status post right total hip arthroplasty postop day #1. PLAN: At this point she is doing well. She is up and ambulating well around the nurses' station. She has very little pain in the hip. She will get some more therapy throughout the day today. Tomorrow the nursing staff can change the dressing and will likely discharge her to home with [facility].
[2016-12-27] MEDS: RIVAROXABAN 10 MG TAB PO SCH (08:31)
[2016-12-27] MEDS: RANITIDINE HCL 150 MG TAB PO SCH ×2 (08:31→20:58)
[2016-12-27] MEDS: LISINOPRIL 10 MG TAB PO SCH (08:32)
[2016-12-27] MEDS: MULTIVITAMIN TAB PO SCH (08:32)
[2016-12-27] MEDS: DOCUSATE SODIUM 100 MG CAP PO SCH ×2 (08:33→20:58)
[2016-12-27] MEDS: FLUTICASONE HFA 220 MCG INHALER INH SCH ×2 (08:34→20:58)
[2016-12-27] MEDS: PANTOprazole SOD 40 MG TAB PO SCH (08:35)
[2016-12-27] MEDS ORDERED: RIVAROXABAN 20 MG TAB PO SCH (09:00)
--- NOTE | 2016-12-27 09:18 | Anesthesiology Progress Note ---
Anesthesia Post Op Note Date & Time Dec 27, 2016 at 09:18 Vital Signs Pain Intensity: 0.0 Vital Signs Past 12 Hours Date Time Temp Pulse Resp B/P (MAP) Pulse Ox O2 Delivery O2 Flow Rate FiO2 12/27/16 07:30 Room Air 12/27/16 06:57 36.7 83 18 131/76 (94) 100 Room Air 12/27/16 03:25 36.9 89 16 115/69 (84) 99 Room Air 12/27/16 00:15 Room Air 12/26/16 23:05 36.4 81 16 108/70 (83) 99 Room Air Notes Mental Status: alert / awake / arousable, participated in evaluation Pt Amnestic to Procedure: Yes Nausea / Vomiting: adequately controlled Pain: adequately controlled Airway Patency, RR, SpO2: stable & adequate BP & HR: stable & adequate Hydration State: stable & adequate Neuraxial Anesthesia: sensory block resolved Anesthetic Complications: no major complications apparent
[2016-12-27 12:53] VITALS: BP 127/68; PULSE 98; TEMP 37.1; O2SAT 99
[2016-12-27] MEDS: ACETAMINOPHEN 500 MG TAB PO SCH ×2 (13:35→22:18)
[2016-12-27 15:00] VITALS: BP 121/70; PULSE 93; TEMP 37.2; O2SAT 100
[2016-12-27] MEDS: SENNA 8.6 MG TAB PO SCH (20:58)
[2016-12-27 22:50] VITALS: BP 131/78; PULSE 86; TEMP 36.8; O2SAT 100
[2016-12-28] MEDS: KETOROLAC TROMETHAMINE 30 MG/ML VIAL IV. SCH (03:46)
[2016-12-28] MEDS: ACETAMINOPHEN 500 MG TAB PO SCH (05:44)
[2016-12-28 07:13] VITALS: BP 129/76; PULSE 74; TEMP 36.7; O2SAT 99
[2016-12-28] MEDS ORDERED: RXC5 PO (07:23)
[2016-12-28] MEDS ORDERED: XRL10 PO (07:23)
--- NOTE | 2016-12-28 07:41 | PROGRESS NOTE ---
DATE: 12/28/2016 CHIEF COMPLAINT: Status post right total hip arthroplasty postop day #2. PROGRESS: Francheska was seen and examined at bedside today. Overall, she is doing extremely well. She has been up and ambulating well with physical therapy. She has already done stairs. Her pain is controlled. She has no complaints. PHYSICAL EXAMINATION: RIGHT HIP: The dressing has been changed. Her leg lengths are equal. She has active dorsiflexion and plantarflexion of her right ankle. Sensation is intact. IMPRESSION: Status post right total hip arthroplasty postop day #2. PLAN: At this point, she is doing well. She is working well with physical therapy. Her pain is controlled. We will discharge her to home later today with [facility].
--- NOTE | 2016-12-28 08:07 | DISCHARGE SUMMARY ---
DISCHARGE DIAGNOSIS: Primary osteoarthritis of the right hip. PROCEDURE: Right total hip arthroplasty on 12/26/[address] Montez Thomas. DISCHARGE INSTRUCTIONS: 1. Xarelto 10 mg daily for 4 weeks. 2. Oxycodone 5-10 mg every 4 hours as needed for pain. 3. Flovent 2 puffs twice a day. 4. Prevacid 30 mg daily. 5. Zestril 10 mg daily. 6. Zantac 150 mg twice a day. 7. Weightbear as tolerated. 8. Follow up with Dr. Thomas in 2 weeks. 9. Call the office of Dr. Thomas with any questions or concerns. HOSPITAL COURSE: Francheska is a pleasant 56-year-old female who presented to my office with complaints of chronic right hip and groin pain. X-rays and clinical examination were diagnostic for primary osteoarthritis of the right hip. After failing conservative treatment, she elected to undergo a right total hip arthroplasty. On 12/26/2016 she underwent a right total hip arthroplasty. She had a spinal anesthetic at the time. Fluoroscopy during the procedure showed a reduced hip. She was taken to the postanesthesia care unit where flat plate radiographs showed subluxation of the hip joint. I was concerned that given her anatomy the neck needed to be lengthened and I needed to tighten up her hip. It took her back to the operating room and under general anesthetic, she underwent a femoral head exchange. Postoperative x-rays showed anatomic total hip arthroplasty. After that, her hospital course was uneventful. She was started on Xarelto 10 mg daily for DVT prophylaxis because of her clotting disorder. She was discharged to general orthopedic floor. On postop day #1, her H&H was stable at 9.9 and 29.6. She was up and ambulating well with physical therapy. Her pain was well controlled. On postop day #2, the nursing staff changed the dressing and she continued to work well with physical therapy and was going up and down stairs. She was subsequently discharged to home on postop day #2 with the above instructions.
[2016-12-28] MEDS: DOCUSATE SODIUM 100 MG CAP PO SCH (09:13)
[2016-12-28] MEDS: MULTIVITAMIN TAB PO SCH (09:13)
[2016-12-28] MEDS: PANTOprazole SOD 40 MG TAB PO SCH (09:13)
[2016-12-28] MEDS: RANITIDINE HCL 150 MG TAB PO SCH (09:14)
[2016-12-28] MEDS: FLUTICASONE HFA 220 MCG INHALER INH SCH (09:14)
[2016-12-28] MEDS: RIVAROXABAN 10 MG TAB PO SCH (09:14)
[2016-12-28] MEDS: LISINOPRIL 10 MG TAB PO SCH (09:15)
[2016-12-28 09:31] VITALS: BP 129/76; PULSE 74; TEMP 36.7; O2SAT 99
--- NOTE | 2016-12-28 13:58 | DIAGNOSTIC IMAGING REPORT ---
R HIP UNILATERAL 1 VIEW CLINICAL HISTORY: HIP REPLACEMENT READJUSTMENT COMPARISON STUDY: Right hip and pelvis radiographs December 26, 2016. Fluoroscopy time: 82 seconds. FINDINGS: Single intraoperative fluoroscopic AP image demonstrates anatomic alignment right hip arthroplasty. Distal aspect of the femoral component was not imaged on this exam. No fracture or unexpected radiopaque body is identified. IMPRESSION: Expected findings during total right hip arthroplasty. Electronically signed by: Clinton Kelly M.D. 12/28/2016 1:56 PM Dictated Date/Time: 12/28/2016 1:54 PM
== END 2016-12-28 11:44 | disposition home health service (06) | DRG 467 ==
LOC: C.ACU 04:48 → C.3E 09:36 → ENRESERV 09:48 → CANRESERV 09:48 → CANBEDREQ 10:20 → ENRESERV 13:58
PROVIDERS: ADMIT Orthopaedic Surgery; ATTEND Orthopaedic Surgery
PROC: 0SRR01Z Replacement of Right Hip Joint, Femoral Surface with Metal Synthetic Substitute, Open Approach (ICD-10-PCS; 2016-12-26)
PROC: 0SP90JZ Removal of Synthetic Substitute from Right Hip Joint, Open Approach (ICD-10-PCS; 2016-12-26)
PROC: 0SR904Z Replacement of Right Hip Joint with Ceramic on Polyethylene Synthetic Substitute, Open Approach (ICD-10-PCS; principal; 2016-12-26 07:15)
DX: M16.11 Unilateral primary osteoarthritis, right hip (principal); T84.020A Dislocation of internal right hip prosthesis, initial encounter; D68.52 Prothrombin gene mutation; I10 Essential (primary) hypertension; Y92.239 Unspecified place in hospital as the place of occurrence of the external cause

== ENCOUNTER 2022-02-03 06:31 | Observation (INO) ==
--- NOTE | 2022-01-04 15:50 | PAT Medication Instructions ---
Medication Instructions Date of Service January 04, 2022 Home Medications albuterol sulfate 90 mcg/actuation aerosol inhaler 1 inh inhalation QID PRN cholecalciferol (vitamin D3) 25 mcg (1,000 unit) tablet (Vitamin D3) 25 mcg PO HS cyanocobalamin (vitamin B-12) 1,000 mcg tablet (Vitamin B-12) 1,000 mcg PO HS fluticasone propionate 110 mcg/actuation HFA aerosol inhaler (Flovent HFA) 2 puff inhalation BID lisinopril 10 mg tablet 10 mg PO QAM omeprazole 20 mg capsule,delayed release 20 mg PO QAM sertraline 25 mg tablet 25 mg PO HS DO NOT take the morning of surgery lisinopril 10 mg tablet 10 mg PO QAM Take morning of surgery With a small sip of water, OTHERWISE NOTHING TO EAT OR DRINK AFTER MIDNIGHT: albuterol sulfate 90 mcg/actuation aerosol inhaler 1 inh inhalation QID PRN(use if needed; please bring with you to hospital day of surgery if possible) fluticasone propionate 110 mcg/actuation HFA aerosol inhaler (Flovent HFA) 2 puff inhalation BID omeprazole 20 mg capsule,delayed release 20 mg PO QAM Take evening before surgery albuterol sulfate 90 mcg/actuation aerosol inhaler 1 inh inhalation QID PRN(if needed) cholecalciferol (vitamin D3) 25 mcg (1,000 unit) tablet (Vitamin D3) 25 mcg PO HS cyanocobalamin (vitamin B-12) 1,000 mcg tablet (Vitamin B-12) 1,000 mcg PO HS fluticasone propionate 110 mcg/actuation HFA aerosol inhaler (Flovent HFA) 2 puff inhalation BID sertraline 25 mg tablet 25 mg PO HS Other Notes If you have any questions please call us at [phone] or [phone] or [phone] or [phone]
--- NOTE | 2022-01-10 10:05 | Anesthesiology Consultation ---
Date of Service January 10, 2022 Assessment & Plan (1) Encounter for pre-operative examination: Outpatient joint assessment: Patient is currently scheduled for inpatient pathway. Case discussed with Dr Rivera who advised if re-evaluated pending system levels during current pandemic/surgeon requests outpatient pathway, patient is acceptable candidate for outpatient joint program from anesthesia standpoint pending surgeon's office assessment of pt motivation/support/completion of same day joint program preop requirements. Chart Review Chart Review: Acceptable Risk for Surgery and Patient seen in Pre Admission Testing Teaching & Discussion Pre-Anesthesia Teaching/Discussion Notes: Instructed NPO after midnight before surgery, except medications with 15 cc of water. Medication instructions provided according to the PAT guidelines. History Surgery Operation Date: 02/03/22 08:10 Proposed Procedures p Left Anterior Total Hip Arthroplasty - Montez Thomas DO Height/Weight Height: 5 ft 11 in Weight: 120.202 kg Allergies Allergy/AdvReac Type Severity Reaction Status Date / Time No Known Allergies Allergy Unverified 01/04/22 10:49 Medications Home Medications Medication Instructions Recorded Confirmed Last Taken albuterol sulfate 90 mcg/actuation 1 inh inhalation QID PRN sob 01/04/22 01/04/22 Unknown aerosol inhaler cholecalciferol (vitamin D3) 25 50 mcg PO HS 01/04/22 01/10/22 Unknown mcg (1,000 unit) tablet (Vitamin D3) cyanocobalamin (vitamin B-12) 1,000 mcg PO HS 01/04/22 01/04/22 Unknown 1,000 mcg tablet (Vitamin B-12) fluticasone propionate 110 2 puff inhalation BID 01/04/22 01/04/22 Unknown mcg/actuation HFA aerosol inhaler (Flovent HFA) lisinopril 10 mg tablet 10 mg PO QAM 01/04/22 01/04/22 Unknown omeprazole 20 mg capsule,delayed 20 mg PO QAM 01/04/22 01/04/22 Unknown release sertraline 25 mg tablet 50 mg PO HS 01/04/22 01/10/22 Unknown albuterol sulfate PRN Shortness Of Breath 01/10/22 Unknown [id number] intranasal (ALT) 01/10/22 Unknown Past Medical History Medical History (Updated 01/10/22 @ 10:09 by Nita Sigala PA-C) Anxiety Asthma well controlled, last rescue inhaler use over 1 month ago GERD (gastroesophageal reflux disease) controlled, stable per pt 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 Hx of colonic polyps Hypertension controlled, stable per pt Superficial thrombophlebitis hx - treated with anticoagulant at the time (~2004) no problems since. Patient denies h/o stroke, seizures, heart attack, heart failure, DM, DVTs or blood transfusions. Exercise / Class Metabolic Activity III < 4 Walking/Shop/Light housework (denies CP or SOB with usual activities, 2 steps in home) Past Family History Family History Other No family history of adverse response to anesthesia Past Surgical History Surgical History History of carpal tunnel release bilateral History of colonoscopy History of gynecologic surgery ovarian wedge resection. History of total hip arthroplasty right (2016) Past Anesthesia History No Hx of Anesthesia Complications and No Family Hx of Anesthesia Complications History of PONV No Hx of PONV and No Hx of Motion Sickness Social History Smoking Status: Never smoker Do You Dip or Chew Tobacco: No Hx Alcohol Use: No Hx Substance Use: No substance use type: does not use Review of Systems Snoring, denies witnessed apneas. Patient denies chest pain, shortness of breath, dyspnea on exertion, fever, chills, cough, wheezing, or palpitations. Physical Exam Vital Signs Vitals BP 118/76 P 84 TEMP 98.3 SP02 97% on RA RESP 18 Physical Full cervical extension range of motion without pain TMD 3.5 finger breadths Mallampati Score 1 Dentition: intact, one crowns; denies chipped or loose teeth, implants or bridges Lungs: normal respiratory effort. Clear throughout to auscultation, no adventitious breath sounds Cardiac: regular rate and rhythm, no murmurs noted Carotid arteries: negative bruit bilat Lab Results Anesthesia Preop Results Results Anesthesia Widget: WBC 7.57 K/ul (4.8-10.8) 01/10/22 Hgb 13.9 g/dl (12.0-16.0) 01/10/22 Hct 42.2 % (34.1-44.9) 01/10/22 Plt 276 K/uL (130-400) 01/10/22 Na 139 mmol/L (136-145) 01/10/22 K 4.6 mmol/L (3.5-5.1) 01/10/22 Cl 106 mmol/L (98-107) 01/10/22 CO2 28 mmol/L (21-32) 01/10/22 BUN 19 mg/dl (6-23) 01/10/22 Creat 0.72 mg/dl (0.6-1.2) 01/10/22 Glucose Level 90 mg/dl (70-99(Fasting)) 01/10/22 PT 10.4 Seconds (9.0-12.0) 01/10/22 PTT 26.3 Seconds (21.0-31.0) 01/10/22 INR 1.0 (0.9-1.1) 01/10/22 Blood Type A Positive 01/10/22 Antibody Screen NEGATIVE 01/10/22 Testing Electrocardiogram Date: 01/10/22 NSR, rate 78 bpm Chest X-Ray Date: 01/10/22 The cardiomediastinal silhouette is unremarkable. The lungs and pleural spaces are clear. There is no pneumothorax. The bony thorax appears intact. IMPRESSION: No active disease in the chest. COVID-19 Risk Screen Screening Information COVID-19 Screen Date: 01/10/22 Exposure 21 Days Family/Household +COVID Last 21 Days: No Exposure 10 Days Any COVID Exposure Last 10 Days: No Symptoms Last 10 Days Experienced COVID Sx Last 10 Days: No + COVID 0-90 Days COVID + in Last 0-90 Days: No
[~2022-02-03 06:31] MED LIST changes: +ACETAMINOPHEN 500 MG TAB PO SCH; +BUPIVACAINE 0.5 % 5 MG/1 ML PF 10ML VIAL ONE; +FAMOTIDINE 20 MG TAB PO SCH; -FLVHFA220 INH; +GABAPENTIN 300 MG CAP PO SCH; -LANS30CA12 PO; -LINICRE TOP; -LISI-461 PO; +LR 500ML BOLUS, THEN 15ML/HR IV SCH; +LR 60ML/HR IV SCH; +ORTHO JOINT MIX INFIL SCH; +TRANEXAMIC ACID 1,000 MG **IV Intra-op IV SCH; +TRANEXAMIC ACID 1,000 MG **IV Pre-op IV SCH; -ZNTT/150 PO; +ceFAZolin 2000MG 2,000 MG/15 ML SYR IV SCH; +dexAMETHasone 4 MG TAB PO SCH
[2022-02-03] MEDS ORDERED: LIDOCAINE 2% MPF LOCAL 5 ML VIAL INFIL ONE (07:40)
[2022-02-03] MEDS ORDERED: MIDAZOLAM HCL 1 MG/ML 2ML VIAL ONE (07:40)
[2022-02-03] MEDS ORDERED: PROPOFOL IV EMULSION 10 MG/ML 20 ML VIAL IV ONE ×2 (07:40→10:28)
--- NOTE | 2022-02-03 08:12 | History & Physical Bridge Note ---
Date of Service February 03, 2022 History & Physical Bridge Note I have examined the patient, reviewed the History & Physical and in the interval since the performance of the History & Physical I have noted the following changes of clinical significance: no changes noted
[2022-02-03] MEDS ORDERED: ORTHO JOINT ANESTHETIC ONE (08:35)
[2022-02-03] MEDS ORDERED: ATROPINE SULFATE 0.1 MG/ML 10ML SYR IV PRN (08:58)
[2022-02-03] MEDS ORDERED: ALBUTEROL 0.083% NEBU SOLN 3 ML VIAL INH PRN (08:58)
[2022-02-03] MEDS ORDERED: HYDROmorphone INJ 1 MG/ML SYRINGE IV PRN (08:58)
[2022-02-03] MEDS ORDERED: KETOROLAC 30 MG/ML VIAL IV PRN (08:58)
[2022-02-03] MEDS ORDERED: ONDANSETRON INJ 2 MG/ML 2 ML VIAL IV PRN ×2 (08:58→12:18)
[2022-02-03] MEDS ORDERED: ePHEDrine sulfate 50 MG/ML AMP IV PRN (08:58)
[2022-02-03] MEDS ORDERED: ONDANSETRON INJ 2 MG/ML 2 ML VIAL ONE (09:48)
--- NOTE | 2022-02-03 10:37 | Operative Report ---
PG Post Operative Report Pre & Post Diagnosis Operation Date: 02/03/22 09:20 Pre-Op Diagnosis: Degenerative Joint Disease Left Hip Post-Op Diagnosis: Degenerative Joint Disease Left Hip I identified the patient and participated in the time-out.: Yes Procedure Operation Date: 02/03/22 09:20 Actual Procedures p Left Anterior Total Hip Arthroplasty(Left) - Montez Thomas DO Surgeon Montez Thomas DO [employer] Montez Katz PA-C Estimated Blood Loss 250 Findings Consistent with Post-Op Diagnosis Specimens Left femoral head Description of Procedure Implants used I used a ZimmerBiomet total hip arthroplasty system with a size 7 standard offset Avenir Complete stem, a 54 mm G7 cup with a 25mm screw, an E1 polyethylen e liner, a 40 mm ceramic head with a +3.5 neck. Francheska arrived at the hospital for the above procedure. She was seen in the preoperative holding area and the operative extremity was identified and signed. She was given a spinal anesthetic, a preoperative antibiotic, and TXA. She was then taken back to the operating room and laid on the table in the supine position. She was given basic sedation. The operative leg was secured to a Puristst leg positioner. The hip was then prepped and draped in sterile fashion. A timeout was done and the patient and the operative extremity was properly identified. An anterior approach was used. Dissection was taken down through the fascia and the tensor muscle belly was retracted laterally and the rectus was retracted medially. The circumflex vessels were identified and ligated. The capsule was then incised and tagged for later repair. The femoral neck was then cut and the femoral head was removed. The acetabulum was exposed. Time was spent doing a complete circumferential labral release. Sequential reaming of the acetabulum up to a size 53 reamer was done. Final reamings were done under fluoroscopy to ensure appropriate version. A Biomet 54 mm G7 cup was then impacted into place. A single 25 mm screw was placed. The E1 polyethylene liner was then snapped into place. Surrounding soft tissues were then injected with 100 cc of an orthopedic pain control cocktail. The proximal femur was then exposed. Sequential broaching up to a size 7 broach was done. Off that broach a size 40 head with a +3.5 neck was trialed. The hip was reduced and fluoroscopic images showed anatomic alignment of the implants in acceptable length. The broach was removed. The final size 7 standard offset Avenir Complete stem was then impacted into place. A ceramic 40 mm head with a +3.5 neck was then impacted onto the stem and the hip was reduced. Final fluoroscopic images showed anatomic alignment of the hip. The capsule was then closed with #1 Vicryl suture. A dilute betadyne lavage was then done for 3 minutes. The joint was then irrigated with normal saline solution. The fascia was closed with #1 PDS suture. Skin was closed with 2-0 Vicryl, nicola, and a Silverlon dressing. She was then transferred to a hospital bed and taken to the post anesthesia care unit in stable condition. She tolerated the procedure well. Montez Katz PA-C, was present for the entire procedure. He was critical for patient positioning, prepping, draping, retraction exposure, wound closure and application of sterile dressing. I attest to the content of the Intraoperative Record and any orders documented therein. Any exceptions are noted below.
--- NOTE | 2022-02-03 11:55 | Fluoroscopy Report ---
FL hip LT 1V CLINICAL HISTORY: LT ANTERIOR TECHNIQUE: 1 views were obtained with the C-arm in the OR with the above procedure. Total fluoroscopy time was 17 seconds. Comparison: Comparison is made to left hip radiographs 01/10/2022 FINDINGS/IMPRESSION: Intraoperative images were obtained of left hip total arthroplasty. Please correlate with intraoperative fluoroscopy and operative report. ACT 112: Negative or not required by law. Electronically signed by: Gil Zambrano M.D. 02/03/2022 11:54 AM
[2022-02-03] MEDS ORDERED: bisacodyL 10 MG SUPP PR PRN (12:18)
[2022-02-03] MEDS ORDERED: HYDROmorphone INJ 0.5 MG/0.5 ML SYR IV PRN (12:18)
[2022-02-03] MEDS ORDERED: oxyCODONE HCL IR 5 MG TAB (IMMEDIATE RELEASE) PO PRN (12:18)
[2022-02-03] MEDS ORDERED: MAGNESIUM HYDROXIDE SUSP 30 ML UDC PO PRN (12:18)
[2022-02-03] MEDS ORDERED: METOCLOPRAMIDE HCL INJ 5 MG/ML 2 ML VIAL IV PRN (12:18)
[2022-02-03] MEDS ORDERED: ALBUTEROL HFA 8 GM INHALER INH PRN (12:18)
[2022-02-03] MEDS ORDERED: NALOXONE HCL 0.4 MG/1 ML VIAL/CARP IV PRN (12:18)
[2022-02-03] MEDS ORDERED: SODIUM CHLORIDE 0.9% 1000ML 1,000 ML IV SCH (12:18)
[2022-02-03] MEDS: ACETAMINOPHEN 500 MG TAB PO SCH ×2 (12:56→21:39)
[2022-02-03] MEDS: KETOROLAC 30 MG/ML VIAL IV SCH ×2 (12:56→19:58)
--- NOTE | 2022-02-03 13:09 | XRay Report ---
XR hip 1V LT w pelvis CLINICAL HISTORY: Postoperative evaluation. COMPARISON: Left hip radiographs January 10, 2022. FINDINGS: Alignment of the total left hip arthroplasty is anatomic. There is no periprosthetic fract ure or unexpected radiopaque foreign body. There are skin nicola. Right hip arthroplasty is incident ally noted. IMPRESSION: Expected findings following total left hip arthroplasty. ACT 112: Negative or not required by law. Electronically signed by: Clinton Kelly M.D. 02/03/2022 1:08 PM
--- NOTE | 2022-02-03 13:09 | Anesthesiology Progress Note ---
Date of Service February 03, 2022 Anesthesia Post Procedure Vital Signs Vital Signs: Temp Pulse Pulse Resp BP Pulse Ox O2 Del Method 02/03/22 12:49 36.3 C L 64 16 125/80 99 Room Air 02/03/22 11:45 36.6 C 62 18 144/75 H 98 Room Air 02/03/22 11:35 62 14 137/75 100 Room Air 02/03/22 11:25 67 17 122/59 L 99 Room Air 02/03/22 11:15 71 13 137/80 100 Room Air 02/03/22 11:05 74 17 135/80 100 Oxymask 02/03/22 10:59 36.0 C L 87 13 133/77 99 Oxymask 02/03/22 07:05 36.8 C 73 18 165/89 H 98 Room Air O2 Flow Rate 02/03/22 12:49 02/03/22 11:45 02/03/22 11:35 02/03/22 11:25 02/03/22 11:15 02/03/22 11:05 5 02/03/22 10:59 5 02/03/22 07:05 Transfer of Care Handoff Completed per policy Notes Mental Status: alert / awake / arousable Patient Amnestic to Procedure: Yes Nausea / Vomiting: adequately controlled Pain: adequately controlled Airway Patency, RR, SpO2: stable & adequate BP & HR: stable & adequate Hydration State: stable & adequate Neuraxial Anesthesia: was administered and sensory block is resolving Anesthetic Complications: no major complications apparent
[2022-02-03] MEDS: ceFAZolin 2000MG 2,000 MG/15 ML SYR IV SCH (16:20)
[2022-02-03] MEDS: DOCUSATE SODIUM 100 MG CAP PO SCH (20:00)
[2022-02-03] MEDS ORDERED: SENNA 8.6 MG TAB PO SCH (21:00)
[2022-02-03] MEDS ORDERED: SERTRALINE HCL 50 MG TABLET PO SCH (21:00)
[2022-02-04] MEDS: KETOROLAC 30 MG/ML VIAL IV SCH ×2 (01:36→08:42)
[2022-02-04] MEDS: ceFAZolin 2000MG 2,000 MG/15 ML SYR IV SCH (01:37)
[2022-02-04] MEDS: ACETAMINOPHEN 500 MG TAB PO SCH (05:44)
--- NOTE | 2022-02-04 07:50 | Orthopedic Progress Note ---
Date of Service February 04, 2022 Assessment & Plan (1) Status post left hip replacement: Overall she is doing very well. She is not having much pain in the left hip. She will be seen by physical therapy today for ambulation and range of motion exercises. She is on Eliquis 2.5 mg twice a day for 6 weeks for DVT prophylaxis. She can be discharged home later today. She will follow-up with orthopedics in 2 weeks. Subjective Continue to was seen and examined at bedside this morning. Overall she is doing very well. She is not having much pain in the left hip. She has been up and ambulating to the bathroom. She has no complaints.. Review of Systems All systems reviewed & are unremarkable except as noted in HPI & below. Physical Exam On physical examination of the left hip, the dressing is clean and dry. Her leg is out in full extension. She has active dorsiflexion and plantarflexion of her left ankle.. Results & Data Results & Data Laboratory Results . Diagnostic Findings Postoperative x-rays of the left hip show the prosthesis to be in anatomic alignment without any evidence of fracture, desiccation, or loosening. PG Care Time/CCT Total # of Minutes Spent Total Time Spent with Patient: Total time spent is greater than 50% in coordination of care (as documented) at patient's floor/unit and/or counseling patient: Coding Level of Care Code 29151 Post Operative Follow-Up Diagnoses Status post left hip replacement Z96.642
--- NOTE | 2022-02-04 07:52 | Discharge Summary ---
Date of Service February 04, 2022 Principal Diagnosis Same as "Discharge Diagnosis" noted below under Discharge Instructions. Discharge Exam On physical examination of the left hip, the dressing is clean and dry. Her leg is out in full extension. She has active dorsiflexion and plantarflexion of her left ankle.. Discharge Data Procedures Performed Operation Date: 02/03/22 09:20 Actual Procedures p Left Anterior Total Hip Arthroplasty(Left) - Montez Thomas DO Ordered Studies 02/03/22 09:20 FL hip LT 1V Routine Hospital Course (1) Status post left hip replacement: On February 03, 2022 Armida arrived at [facility] and underwent a left hip replacement without complication. She had a spinal anesthetic. Postoperatively she was started on Eliquis for DVT prophylaxis and transferred to the general orthopedic floors. Her hospital course was uneventful. On postop day #1, her vital signs were stable and her pain was well controlled. She was able to participate well with physical therapy doing ambulation and range of motion exercises. She was then discharged home. She will follow-up with orthopedics in 2 weeks. PG Care Time/CCT Total # of Minutes Spent Total Time Spent with Patient: Total time spent is greater than 50% in coordination of care (as documented) at patient's floor/unit and/or counseling patient: Discharge Plan Discharge Items Patient Disposition: Home - Home Health Services Reason For Visit: DJD Left Hip Discharge Diagnosis: Left hip replacement Activity: Per Instructions section Non-emergency contact: Surgeon Call non-emergency contact if: your wound has increased redness and your wound has increased drainage Follow-up/Referrals: Betsy Funes PA-C [Primary Care Provider] - Diet: Regular Addtl Attending Provider Instructions: Activity and Therapy Recommendations: * If you are using [facility] then therapy will be provided at your home until they feel you have accomplished all of your goals. * If you are using [facility] then Physical Therapy will be provided until they feel you are ready to start Outpatient Physical Therapy. * If you are not using home therapy then Outpatient Physical Therapy should start about 3-5 days from your day of surgery. Therapy will last about 6-10 weeks * You were shown a series of exercises in the hospital. Do these exercises three times each day including the exercises you were shown in physical therapy. * Get up and walk several times each day.~ For the first four weeks, try not to stand or walk for more than one hour at a time. If you do stand or walk for more than one hour, you will not hurt anything, but your leg will likely swell.~~ * As you feel comfortable, you may change from the walker or crutches to a cane and~then to independent walking. Medications: * Narcotic You will likely be sent home from the hospital with a prescription for the narcotic pain medication that worked best throughout your stay. * Aspirin Most patients will be required to take Aspirin 81mg twice a day for 6 weeks after surgery. This is obtained [id number] and a prescription is not necessary. * Other medications may be prescribed for specific circumstances. If you have any questions, please call the office at . * Resume previous home medications unless otherwise instructed TEDs/Elastic Stockings: The white elastic stockings help limit swelling and prevent blood clots from forming in your legs. The more you wear them, the more they work. Wear them for six weeks. Dressing Care: Leave the Silverlon dressing in place for 7 days. After 7 days you may remove the dressing. If the incision is not draining then you may leave the nicola open to air. If there is a little bit of drainage or if the nicola are getting stuck on your clothing then cover the incision with a dry dressing. The nicola will be removed at your 2 week follow-up appointment. Showering: You may shower with the Silverlon dressing in place. Do not let the shower spray hit the dressing directly. Pat the Silverlon dressing dry. If the dressing becomes wet underneath, then simply remove the dressing. Keep the incision dry until you are 7 days out from the day of surgery. After 7 days you may remove the Silverlon dressing and shower with the nicola exposed. Let soapy water run over the nicola and pat them dry. Do not scrub or soak the incision. Things To Watch For: * Drainage from the incision site that occurs more than one week after your surgery. * Increased redness at the incision site. * Fever above 102 degrees Fahrenheit. * Unusual chest pain or shortness of breath. * Call [facility] at with any of the above problems Follow-Up Visit: Follow-up with Dr. Thmoas's PA (Montez Katz) 2-3 weeks after your day of surgery. He will remove your nicola and answer any questions. If you have any additional questions or concerns, Dr Thomas is usually in the office at the same time and will be available An appointment was probably scheduled when you signed-up for surgery in the office. If you have any questions call Office Instructions: More detailed instructions as well as Frequently Asked Questions were provided in a folder by our office when you signed-up for surgery. Please review these instructions when you get home. If you have any further questions or concerns, please feel free to call the office at [phone] Pending Studies at Discharge: No Stand-Alone Forms: My [facility] Medications and DC Order Prescriptions: New Eliquis 2.5 mg Tablet 2.5 mg PO BID 42 Days Qty: 84 0RF oxycodone-acetaminophen 5-325 mg tablet 1 tab PO Q6H PRN (Reason: pain) Qty: 30 0RF Continued lisinopril 10 mg Tablet 10 mg PO QAM omeprazole 20 mg Capsule,Delayed Release(Dr/Ec) 20 mg PO QAM fluticasone propionate [Flovent HFA] 110 mcg/actuation Hfa Aerosol Inhaler 2 puff INHALATION BID cyanocobalamin (vitamin B-12) [Vitamin B-12] 1,000 mcg Tablet 1,000 mcg PO HS sertraline 25 mg Tablet 50 mg PO HS cholecalciferol (vitamin D3) [Vitamin D3] 25 mcg (1,000 unit) Tablet 50 mcg PO HS albuterol sulfate 90 mcg/actuation Hfa Aerosol Inhaler 1 inh INHALATION QID PRN (Reason: sob) Flonase aerosol 50 intranasal (ALT) PM Discharge Orders: Discharge Order (Routine); Ordered 02/04/22 Ordered By: Montez Thomas Admission Data Admit Date/Time: 02/03/22 11:02 Attending Provider: Montez Thomas Admit Provider: Montez Thomas Primary Care Provider: Betsy Funes
[2022-02-04] MEDS ORDERED: dexAMETHasone 4 MG TAB PO SCH (08:00)
[2022-02-04] MEDS: DOCUSATE SODIUM 100 MG CAP PO SCH (08:39)
[2022-02-04] MEDS ORDERED: MULTIVITAMIN TAB PO SCH (09:00)
[2022-02-04] MEDS ORDERED: PANTOprazole 40 MG TAB PO SCH (09:00)
[2022-02-04] MEDS ORDERED: FLUTICASONE FUROATE 200MCG 14 PUFFS/INHALER INH SCH (09:00)
[2022-02-04] MEDS ORDERED: lisinopril 10 MG TAB PO SCH (09:00)
[2022-02-04] MEDS ORDERED: APIXABAN 2.5 MG TAB PO SCH (09:00)
== END 2022-02-04 11:53 | disposition home health service (06) ==
LOC: 3E 06:31 → ASU 06:31